=== PATIENT | male | born 1950 | race Caucasian/White ===

== ENCOUNTER → 2016-07-16 | Outpatient (CLI) | payer OTHER ==
--- NOTE | 2016-07-16 14:23 | RADRPT ---
PROCEDURE: XR pelvis/right hip. CLINICAL INDICATION: Hip pain TECHNIQUE: AP pelvis/lateral right hip view performed COMPARISON: No prior studies are available for comparison. FINDINGS: There is mild to moderate bilateral hip osteoarthrosis. This is associated with joint space narrowin g, subchondral sclerosis and osteophytosis. There is normal mineralization. No fractures or osseou s lesions are identified. The soft tissues are unremarkable. IMPRESSION: Mild to moderate bilateral hip osteoarthrosis. RPTAT: [facility] .Darwin Haney MD, MD Date Time Electronically viewed and signed by .Darwin Haney MD, on 07/16/2016 14:22 .B/
--- NOTE | 2016-07-16 18:34 | HKNOTE ---
DATE OF SERVICE: 07/16/2016 MAIN COMPLAINT: Pain in the right hip. HISTORY OF MAIN COMPLAINT: The patient is a 66-year-old male who complains of pain in his right flavia in and greater trochanter. He has had this now for about a year. The patient used to be a "very se rious runner." He would run 15 miles a week and he did so for the last 40 years. However, he star izabel developing pain in the right hip about a year ago and, since then, he just simply goes for 2 to 3 mile walks a day. PRESENT COMPLAINTS: The pain in the right hip when he gets it is in the right groin and occasionall y over the greater trochanter. Pain is described as being moderate. Pain is aggravated by walking, weightbearing, and stair climbing. He does get rest pain occasionally and night pain. He has take n Advil and Aleve and that does seem to help. The patient does not have any problem with his lumbar spine. No pain in his lower back. There is no numbness or tingling in the legs. On a level [employer], he can currently walk 2 to 3 miles a day without any difficulty. The patient occasionally limps when he is in pain. He does not have a shoe lift. He can clip his t oenails and tie his shoelaces. SPORTING ACTIVITIES: Running and hiking. PAST ORTHOPEDIC HISTORY: PREVIOUS ORTHOPEDIC OPERATIONS: None. PRIOR CORTISONE INTAKE: None. ALCOHOL INTAKE: One to 2 glasses a day. OTHER JOINT PROBLEMS: None. BLOOD TESTS FOR ARTHRITIS: None. PRIOR INJURIES TO HIPS OR KNEES: None. 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 PAST MEDICAL HISTORY: Negative. PAST SURGICAL HISTORY: 1. Bilateral cataracts, 2017. 2. Rotator cuff surgery, 2010. 3. Hernia repair 14 years ago (left side). FAMILY HISTORY: Totally noncontributory. SYSTEMS REVIEW: Gait disturbance, otherwise entirely negative. HABITS: The patient does not smoke and has never smoked. He drinks one alcoholic beverage a day. CHIP PERSON: Dr. Cuellar, [place]. PHYSICAL EXAMINATION: GENERAL: The patient is an extremely fit-looking and youthful 66-year-old male who looks at least 1 0 years younger than his stated age. He walks without a walking aid. His gait is completely normal . BACK: Dynamic pain assessment reveals a pain free range of motion in flexion, extension, lateral be nding, and rotation. Inspection of the spine reveals no list. There is no lumbar paraspinal muscle spasm. The pelvis is level. Facet stress test is negative bilaterally. Palpation of the spine de monstrates no tenderness of the spinous processes, facet joints, sacroiliac joint, sciatic notch, or posterior thigh. RIGHT HIP: A full range of motion with mild pain in the right groin at the limits of motion. LEFT HIP: No tenderness anywhere around the hip. LEFT KNEE: The left knee shows normal alignment. Active and passive extension is 0 degrees. Activ e and passive flexion is 135 degrees. The medial and lateral collateral ligaments and cruciate liga ments are intact. Delma test is negative. There is no effusion, tenderness, scarring, crepitus, or cysts. The patella tracks normally. There is no tenderness on the articular surface of the castaneda lla or in the patellar groove. The Q angle is normal. RIGHT KNEE: The right knee shows normal alignment. Active and passive extension is 0 degrees. Act panda and passive flexion is 135 degrees. The medial and lateral collateral ligaments and cruciate li gaments are intact. Delma test is negative. There is no effusion, tenderness, scarring, crepitus , or cysts. The patella tracks normally. There is no tenderness on the articular surface of the pa tella or in the patellar groove. The Q angle is normal. IMAGING: Plain x-rays of the pelvis and both hip joints obtained at [facility] today were reviewed (3 views). Right hip shows mild narrowing of the medial joint space. Left h ip shows mild narrowing of the superolateral joint space. No subchondral sclerosis or interosseous cysts. DIAGNOSES: 1. Mild degenerative osteoarthritis of the right hip (symptomatic). 2. Mild degenerative osteoarthritis of the left hip (nonsymptomatic). MANAGEMENT: The patient is advised that he does have some arthritis in the right hip, which he can expect to progress with time. There is no way to predict to predict how rapidly the progression gustabo l come. He should maintain his normal lifestyle. He can walk as much as he likes or even run and I do not suspect that it will harm the hip in any way. Obviously, he must not push himself beyond the limits of pain. The patient is advised to take [id number] NSAIDs. He indicates that he will try doing this an d see what happens. Eventually, the pain will get worse and he will have to return for a cortisone injection into the hip. The patient will be seen again as necessary. Dictated By: STEVIE TOUSSAINT/LO Conf#: [id number] DID#: [id number]
== END | disposition home or self-care (01) ==
LOC: HKI 13:47
DX: M25.551 Pain in right hip (principal); M16.0 Bilateral primary osteoarthritis of hip
CPT/HCPCS: 73502; G0463